=== PATIENT | female | born 1965 | race Two or more races ===

== ENCOUNTER 2024-06-28 07:41 | Outpatient (CLI) | payer OTHER | END 2024-06-28 08:00 | disposition home or self-care (01) | LOC: MAMO-SONO 07:41 | PROVIDERS: ATTEND Obstetrics & Gynecology | DX: N63.10 Unspecified lump in the right breast, unspecified quadrant (principal); N63.20 Unspecified lump in the left breast, unspecified quadrant ==

== ENCOUNTER 2024-11-04 06:22 | Emergency (ER) | payer OTHER ==
[~2024-11-04] VITALS: Ht 157.5 cm; Wt 68.9 kg
[2024-11-04] MEDS ORDERED: 0.9 % SODIUM CHLORIDE 1,000 ML IV STA (07:02)
[2024-11-04] MEDS ORDERED: MEPERIDINE HCL/PF 50 MG/ML VIAL IM STA (07:03)
[2024-11-04] MEDS ORDERED: PROMETHAZINE HCL 25 MG/ML AMPUL IM STA (07:03)
[2024-11-04] MEDS ORDERED: HYOSCYAMINE SULFATE 0.125 MG TAB.SUBL SL ONE (07:15)
[2024-11-04] MEDS ORDERED: PROMETHAZINE HCL 25 MG/ML AMPUL ONE (07:31)
[2024-11-04] MEDS ORDERED: HYOSCYAMINE SULFATE 0.125 MG TAB.SUBL ONE (07:31)
[2024-11-04 08:15] LABS: HEMATOCRIT 40.7 % (36.0-45.00); HEMOGLOBIN 13.5 g/dL (12.0-15.00); MEAN CELL VOLUME 90.5 fL (80.00-100.00); MEAN CORPUSCULAR HGB CONC 33.1 g/dl (32.0-36.0); PLATELET COUNT 205 K/uL (150-450); RED CELL DISTRIBUTION WIDTH 12.7 % (11.5-14.5)
[2024-11-04 08:32] LABS: CALCIUM 9.1 mg/dL (8.5-10.1); CREATININE SERUM 0.62 mg/dL (0.55-1.02); GFR 98.19; POTASSIUM 4.31 mEq/L (3.5-5.1)
[2024-11-04 08:41] LABS: INR < 0.93; PARTIAL THROMBOPLASTIN TIME 24.4 SECONDS (22.0-34.0); PROTHROMBIN TIME 10.1 SECONDS (9.0-11.5)
[2024-11-04 08:51] LABS: URINE APPEARANCE Clear; URINE BILIRRUBIN Negative (NEGATIVE); URINE BLOOD Negative; URINE COLOR Yellow; URINE GLUCOSE Negative (NEGATIVE); URINE KETONE Negative (NEGATIVE); URINE LEUKOCYTE Trace; URINE NITRATE Negative; URINE PROTEIN Negative (NEGATIVE); URINE UROBILINOGEN 0.2 E.U./dl
[2024-11-04 08:55] LABS: URINE BACTERIA 9.7 uL (0.0-1933); URINE EPITHELIAL CELLS 18.3 uL (0.0-38.8); URINE RBC 10.6 uL (0.0-20.8); URINE WBC 8.5 uL (0.0-23.2)
[2024-11-04 09:09] LABS: URINE CAST 0.14 uL (0.0-1.40)
== END 2024-11-04 10:03 | disposition home or self-care (01) ==
LOC: ER 06:25
DX: K57.32 Diverticulitis of large intestine without perforation or abscess without bleeding (principal); R10.32 Left lower quadrant pain

== ENCOUNTER → 2025-03-28 08:10 | Outpatient (CLI) | payer OTHER ==
[2025-03-28 08:57] LABS: PH,URINE 5.5 (5.0-8.0); URINE APPEARANCE Cloudy; URINE BILIRRUBIN Negative (NEGATIVE); URINE BLOOD Negative; URINE COLOR Yellow; URINE GLUCOSE Negative (NEGATIVE); URINE KETONE Negative (NEGATIVE); URINE LEUKOCYTE Small; URINE NITRATE Negative; URINE PROTEIN Negative (NEGATIVE); URINE UROBILINOGEN 0.2 E.U./dl
[2025-03-28 09:00] LABS: URINE BACTERIA 277.8 uL (0.0-1933); URINE EPITHELIAL CELLS 24.5 uL (0.0-38.8); URINE RBC 10.7 uL (0.0-20.8); URINE WBC 23.8 uL (0.0-23.2)
[2025-03-28 09:08] LABS: URINE CAST 0.44 uL (0.0-1.40)
[2025-03-28 09:23] LABS: ERYTHROCYTE SEDIMENTATION RATE 8 mm/hr (0-30)
[2025-03-28 09:36] LABS: HEMATOCRIT 37.9 % (34.1-44.9); HEMOGLOBIN 12.5 g/dL (11.2-15.7); RED BLOOD COUNT 4.19 M/uL (3.93-5.22)
[2025-03-28 09:37] LABS: BASO % 0.5 % (0.1-1.2); EOS # 0.19 (0.04-0.54); EOS % 5.2 % (0.7-7.0); LYMPH # 1.27 (1.18-3.74); LYMPH % 34.8 % (19.3-53.1); MEAN CORPUSCULAR HEMOGLOBIN 29.8 pg (25.6-32.2); MONO # 0.34 (0.24-0.82); MONO % 9.3 % (4.7-12.5); NEUT # 1.83 (1.56-6.13); NEUT % 50.2 % (34.0-71.1); PLATELET COUNT 213 K/uL (163-369); RED CELL DISTRIBUTION WIDTH 11.8 % (11.6-14.4)
[2025-03-28 09:57] LABS: ALBUMIN 3.4 gm/dL (3.4-5.0); BILIRUBIN TOTAL 0.43 mg/dL (0.3-1.2); CALCIUM 8.6 mg/dL (8.5-10.1); CHOL HDL RATIO 3.1 (0-5.0); CREATININE SERUM 0.64 mg/dL (0.55-1.02); GFR 94.65; GLOBULINA 3.5 G/DL (2.4-3.5); POTASSIUM 4.32 mEq/L (3.5-5.1); T4 TOTAL 6.5 UG/DL (4.8-13.9); TOTAL PROTEIN 6.9 gm/dL (6.4-8.2); TSH 2.04 uIU/mL (0.358-3.74)
[2025-03-28 12:06] LABS: T3 TOTAL 0.93 ng/ml (0.846-2.02); VITAMIN D3 25 HYDROXY 32.19 ng/ml (30-120)
== END | disposition home or self-care (01) ==
LOC: LAB 08:10
PROVIDERS: ATTEND General Practice
DX: R50.9 Fever, unspecified (principal); E11.69 Type 2 diabetes mellitus with other specified complication; N39.0 Urinary tract infection, site not specified; I11.9 Hypertensive heart disease without heart failure; E03.9 Hypothyroidism, unspecified; E78.1 Pure hyperglyceridemia; E55.9 Vitamin D deficiency, unspecified; I50.9 Heart failure, unspecified; M19.90 Unspecified osteoarthritis, unspecified site; M85.80 Other specified disorders of bone density and structure, unspecified site

== ENCOUNTER 2025-03-28 08:33 | Outpatient (CLI) | payer OTHER | END 2025-03-28 08:36 | disposition home or self-care (01) | LOC: RAD 08:33 | PROVIDERS: ATTEND General Practice | DX: M54.16 Radiculopathy, lumbar region (principal); M53.3 Sacrococcygeal disorders, not elsewhere classified ==

== ENCOUNTER 2025-04-14 09:08 | Outpatient (CLI) | payer OTHER | END 2025-04-14 09:09 | disposition home or self-care (01) | LOC: NUCLEAR 09:08 | PROVIDERS: ATTEND General Practice | DX: M81.0 Age-related osteoporosis without current pathological fracture (principal); M85.80 Other specified disorders of bone density and structure, unspecified site ==

== ENCOUNTER 2025-10-19 15:57 | Emergency (ER) | payer OTHER ==
[~2025-10-19] VITALS: Ht 154.9 cm; Wt 68.5 kg
[2025-10-19] MEDS ORDERED: LACTOBACILLUS ACIDOPHILUS 1 CAP CAP PO ONE ×2 (18:25→18:30)
[2025-10-19] MEDS ORDERED: GUAIFENESIN 200 MG/10 ML BLIST.PACK PO ONE ×2 (18:25→18:30)
[2025-10-19] MEDS ORDERED: FAMOTIDINE/PF 20 MG/2 ML VIAL ONE (18:26)
[2025-10-19] MEDS ORDERED: IPRATROPIUM BROMIDE 0.5 MG/2.5 ML AMPUL.NEB IH ONE ×2 (18:30→18:58)
[2025-10-19] MEDS ORDERED: 0.9 % SODIUM CHLORIDE 1,000 ML IV SCH (18:30)
[2025-10-19] MEDS ORDERED: FAMOTIDINE/PF 20 MG/2 ML VIAL IV ONE (18:30)
[2025-10-19 20:34] LABS: BASO % 1.1 % (0.1-1.2); EOS # 0.12 (0.04-0.54); EOS % 3.3 % (0.7-7.0); LYMPH # 1.17 (1.18-3.74); LYMPH % 32.3 % (19.3-53.1); MEAN PLATELET VOLUME 9.70 fl (9.4-12.4); MONO # 0.59 (0.24-0.82); NEUT # 1.70 (1.56-6.13); NEUT % 47.0 % (34.0-71.1); RED CELL DISTRIBUTION WIDTH 11.9 % (11.6-14.4)
[2025-10-19 20:36] LABS: MONO % 16.3 % (4.7-12.5)
[2025-10-19 20:37] LABS: ERYTHROCYTE SEDIMENTATION RATE 15 mm/hr (0-30)
[2025-10-19 21:27] LABS: URINE APPEARANCE Clear; URINE BILIRRUBIN Negative (NEGATIVE); URINE BLOOD Negative; URINE COLOR Yellow; URINE GLUCOSE Negative (NEGATIVE); URINE KETONE Trace (NEGATIVE); URINE LEUKOCYTE Moderate; URINE NITRATE Negative; URINE PROTEIN Trace (NEGATIVE); URINE UROBILINOGEN 0.2 E.U./dl
[2025-10-19 21:31] LABS: URINE BACTERIA 1690.7 uL (0.0-1933); URINE CAST 1.98 uL (0.0-1.40); URINE EPITHELIAL CELLS 44.3 uL (0.0-38.8); URINE RBC 33.4 uL (0.0-20.8); URINE WBC 191.8 uL (0.0-23.2)
[2025-10-19 21:35] LABS: ALT/SGPT 28.0 U/L (12-78); AST/SGOT 35.0 U/L (15-37); BILIRUBIN TOTAL 0.41 mg/dL (0.3-1.2); BUN CREA RATIO 20.0 (7.0-25.0); CREATININE SERUM 0.79 mg/dL (0.55-1.02); GFR 73.99; GLOBULINA 4.8 G/DL (2.4-3.5); GLUCOSE FASTING 86.0 mg/dL (65-100); OSMOLALITY SERUM 282.0 MOSM/KG (275-295)
[2025-10-19 21:52] LABS: COVID-19 AG NEGATIVE (NEGATIVE)
[2025-10-19 22:10] LABS: URINE MUCUS HEAVY
[2025-10-19 22:11] LABS: TYPE CELLS SQUAMOUS
[2025-10-19] MEDS ORDERED: OSEL75CA PO (22:55)
[2025-10-19] MEDS ORDERED: MUCINEX DM ER1 EAC1 PO (22:55)
[2025-10-19] MEDS ORDERED: INTESTINEX680 M1 PO (22:55)
[2025-10-19] MEDS ORDERED: PEPCID AC20 MG PO (22:55)
== END 2025-10-19 23:14 | disposition home or self-care (01) ==
LOC: ER 15:58
PROVIDERS: Student in an Organized Health Care Education/Training Program
DX: J10.1 Influenza due to other identified influenza virus with other respiratory manifestations (principal); R05.8 Other specified cough; R10.9 Unspecified abdominal pain; R07.89 Other chest pain; R11.0 Nausea; Z20.822 Contact with and (suspected) exposure to COVID-19
CPT/HCPCS: 36415; 74177; 94640; Q9965